=== PATIENT | female | born 1970 | race Caucasian/White ===

== ENCOUNTER 2024-02-22 13:12 | Outpatient (CLI) | payer BC | END 2024-02-22 13:13 | disposition home or self-care (01) | LOC: SCSMRI 13:12 | PROVIDERS: ATTEND Orthopaedic Surgery | DX: M67.431 Ganglion, right wrist (principal) ==

== ENCOUNTER 2024-05-20 07:31 | Outpatient (CLI) | payer BC ==
[2024-05-20] MEDS ORDERED: Iopamidol 370 76% 100 ML VIAL ONE (09:36)
== END 2024-05-20 07:32 | disposition home or self-care (01) ==
LOC: BICCT 07:31
PROVIDERS: ATTEND Family Medicine
DX: R10.13 Epigastric pain (principal); K76.9 Liver disease, unspecified; Z90.49 Acquired absence of other specified parts of digestive tract
CPT/HCPCS: 74177; Q9967

== ENCOUNTER 2025-02-05 08:32 | Outpatient (CLI) | payer BC | END 2025-02-05 08:33 | disposition home or self-care (01) | LOC: BICRAD 08:32 | PROVIDERS: ATTEND Nurse Practitioner Family | DX: M47.817 Spondylosis without myelopathy or radiculopathy, lumbosacral region (principal); M41.9 Scoliosis, unspecified; Z98.1 Arthrodesis status | CPT/HCPCS: 72120 ==